=== PATIENT | female | born 1945 | race African-American/Black ===

== ENCOUNTER → 2016-08-28 | Outpatient (CLI) | payer MEDICARE, MEDICAID ==
[~2016-08-28] MED LIST: ATOR10TA15 PO; FERR200T PO; FERR325T PO; GABA300C5 PO; HYDR25TA5 PO; IBUP-232 PO; MECL-62 PO; MEDICAL COMPRES1 MIS; POTA10CA PO; POTA10TA8 PO; PRIL40CA PO; ROSU1TAB8 PO
[2016-08-28 08:25] LABS: HEMATOCRIT 38.3 % (35.0-46.0); MEAN CELL VOLUME 88.9 FL (80.0-100.0); MEAN CORPUSCULAR HEMOGLOBIN 29.3 PG (27.0-34.0); PLATELET COUNT 198 TH/MM3 (150-450); RED BLOOD COUNT 4.31 MIL/MM3 (4.00-5.30); RED CELL DISTRIBUTION WIDTH 14.3 % (11.6-17.2); REVIEW FLAG FINAL; WHITE BLOOD COUNT 6.5 TH/MM3 (4.0-11.0)
[2016-08-28 08:54] LABS: ALT (GPT) 31 U/L (10-53); ANION GAP 8 MEQ/L (5-15); AST (GOT) 29 U/L (15-37); BICARBONATE 29.4 MEQ/L (21.0-32.0); BLOOD UREA NITROGEN 11 MG/DL (7-18); CHLORIDE 105 MEQ/L (98-107); GLOMERULAR FILTRATION RATE 75 ML/MIN (>89); GLUCOSE,FASTING 108 MG/DL (74-99); POTASSIUM 3.7 MEQ/L (3.5-5.1); SODIUM (NA) 142 MEQ/L (136-145)
[2016-08-28 09:03] LABS: ALKALINE PHOSPHATASE 90 U/L (45-117); HDL CHOLESTEROL 58.1 MG/DL (40.0-60.0); LDL CHOLESTEROL 63 MG/DL (0-99); TOTAL BILIRUBIN ADULT 0.3 MG/DL (0.2-1.0)
== END ==
LOC: CLAB 07:55
PROVIDERS: ATTEND Family Medicine
DX: E87.6 Hypokalemia (principal); I10 Essential (primary) hypertension; E78.5 Hyperlipidemia, unspecified; D64.9 Anemia, unspecified
CPT/HCPCS: 36415; 80053; 80061; 84443; 85027

== ENCOUNTER 2016-09-13 01:07 | Emergency (ER) | payer MEDICARE, MEDICAID ==
[~2016-09-13] VITALS: Ht 160 cm; Wt 76.0 kg
[~2016-09-13 01:07] MED LIST changes: -FERR200T PO; -MEDICAL COMPRES1 MIS; -POTA10CA PO; -PRIL40CA PO; -ROSU1TAB8 PO
[2016-09-13 01:11] VITALS: BP 204/95; PULSE 76; RESP 15; TEMP 97.4; O2SAT 99
[2016-09-13] MEDS ORDERED: ROSU1TAB8 PO (02:20)
[2016-09-13] MEDS ORDERED: SODIUM CHLORIDE 0.9% FLUSH 10 ML FLUSH IVF PRN (03:00)
--- NOTE | 2016-09-13 03:27 | RADRPT ---
EXAM DATE/TIME: 09/13/2016 03:16 [facility] COMPARISON: CHEST PA & LAT, March 31, 2015, 12:27. INDICATIONS : Chest discomfort, swelling in lower extremities for 1 month MEDICAL HISTORY : None. SURGICAL HISTORY : None. ENCOUNTER: Initial ACUITY: 1 month PAIN SCORE: 0/10 LOCATION: Bilateral chest FINDINGS: PA and lateral views of the chest demonstrate the lungs to be symmetrically aerated without evidence of mass, infiltrate or effusion. The cardiomediastinal contours are unremarkable. Osseous structure s are intact. CONCLUSION: No acute disease. Anurag Ledbetter Jr., MD on September 13, 2016 at 3:26 Board Certified Radiologist. This report was verified electronically.
[2016-09-13 03:30] LABS: AUTOMATED NEUTROPHIL # 5.3 TH/MM3 (1.8-7.7); BASOPHIL % 0.4 % (0.0-2.0); EOSINOPHIL # 0.1 TH/MM3 (0-0.4); EOSINOPHIL % 1.4 % (0.0-4.0); HEMATOCRIT 39.1 % (35.0-46.0); HEMO FLAGS DIFF FINAL; LYMPH % 18.8 % (9.0-44.0); LYMPHOCYTE # 1.4 TH/MM3 (1.0-4.8); MEAN CELL VOLUME 88.4 FL (80.0-100.0); MEAN CORPUSCULAR HEMOGLOBIN 29.6 PG (27.0-34.0); MEAN CORPUSCULAR HGB CONC 33.5 % (32.0-36.0); MONO % 9.1 % (0.0-8.0); NEUT % 70.3 % (16.0-70.0); PLATELET COUNT 192 TH/MM3 (150-450); RED BLOOD COUNT 4.42 MIL/MM3 (4.00-5.30); RED CELL DISTRIBUTION WIDTH 14.2 % (11.6-17.2); WHITE BLOOD COUNT 7.6 TH/MM3 (4.0-11.0)
[2016-09-13 03:45] LABS: APTT (PATIENT) 25.7 SEC (24.3-30.1); PROTHROMBIN TIME - PATIENT 10.5 SEC (9.8-11.6)
[2016-09-13 03:47] LABS: ANION GAP 7 MEQ/L (5-15); BICARBONATE 29.2 MEQ/L (21.0-32.0); BLOOD UREA NITROGEN 16 MG/DL (7-18); CHLORIDE 107 MEQ/L (98-107); GLOMERULAR FILTRATION RATE 73 ML/MIN (>89); MAGNESIUM 2.1 MG/DL (1.5-2.5); POTASSIUM 4.2 MEQ/L (3.5-5.1); SODIUM (NA) 143 MEQ/L (136-145)
[2016-09-13 03:51] LABS: CREATINE KINASE 143 U/L (26-192)
[2016-09-13 04:03] LABS: CKMB 1.8 NG/ML (0.5-3.6)
[2016-09-13 04:15] VITALS: RESP 16; O2SAT 99
[2016-09-13 04:17] VITALS: BP_SYST 124; BP_SYST 129; BP_DIAS 72; BP_DIAS 76; PULSE 80; RESP 16; O2SAT 99
--- NOTE | 2016-09-13 04:20 | PD ---
HPI Chief Complaint: Edema Time Seen by Provider: 02:18 Travel History International Travel<30 days: No Contact w/Intl Traveler<30days: No Traveled to known affect area: No History of Present Illness HPI This is a very pleasant 71 year old female presents to the ER for evaluation of bilateral ankle swelling, gradually worsening over the past few weeks. States mildly tender and aching in ankles. Denies injury, sob, orthopnea, chest pain, decreased urine output. States her last set of labs some time ago were fine. Denies history of liver, kidney or heart disease. PFSH Past Medical History Anemia: Yes Arthritis: Yes Asthma: No Autoimmune Disease: No Anxiety: No Depression: No Heart Rhythm Problems: No Cancer: No Cardiovascular Problems: No High Cholesterol: Yes Chemotherapy: No Chest Pain: No Congestive Heart Failure: No COPD: No Cerebrovascular Accident: No Diabetes: No Diminished Hearing: No Endocrine: No Gastrointestinal Disorders: Yes (gerd) GERD: Yes Glaucoma: No Genitourinary: No Hepatitis: No Hiatal Hernia: No Hypertension: No Immune Disorder: No Kidney Stones: No Medical other: Yes (NECK PROBLEMS) Musculoskeletal: Yes (arthritis in r knee) Neurologic: Yes (tingling in L foot) Psychiatric: No Reproductive: No Respiratory: No Immunizations Current: Yes Migraines: No Radiation Therapy: No Renal Failure: No Seizures: No Sickle Cell Disease: No Sleep Apnea: No Thyroid Disease: No Triglycerides - High: Yes Ulcer: No ?: Not Menopausal: Yes : 0 Past Surgical History Abdominal Surgery: Yes (HERNIA ) AICD: No Arteriovenous Shunt: No Cardiac Surgery: No Ear Surgery: No Endocrine Surgery: No Eye Surgery: Yes (BILATERAL CATARACT 1987) Genitourinary Surgery: No Gynecologic Surgery: Yes ( CERVICAL MASS REMOVED APR 2015) Hysterectomy: Yes Insulin Pump: No Joint Replacement: No Neurologic Surgery: No Oral Surgery: No Pacemaker: No Thoracic Surgery: No Other Surgery: Yes (RIGHT BREAST BIOPSY) Social History Alcohol Use: No Tobacco Use: No (never) Substance Use: No Allergies-Medications (Allergen,Severity, Reaction): Coded Allergies: No Known Allergies (Verified , 09/17/16) Reported Meds & Prescriptions Reported Meds & Active Scripts Active Medical Compression Elastic Stockings 1 Mis Mis 1 Ea .ROUTE DIRECTED Hydrochlorothiazide 25 Mg Tab 25 Mg PO BID Gabapentin 300 Mg Cap 300 Mg PO HS Meclizine (Meclizine HCl) 25 Mg Tab 25 Mg PO BID PRN Reported Rosuvastatin (Rosuvastatin Calcium) 20 Mg Tab 20 Mg PO DAILY Ferrous Sulfate 325 Mg Tab 325 Mg PO DAILY Potassium Chloride CR (Potassium Chloride) 10 Meq Tab 10 Meq PO BID Ibuprofen 600 Mg Tab 600 Mg PO Q8HR PRN Review of Systems Except as stated in HPI: all other systems reviewed are Neg Physical Exam Narrative GENERAL: WD/WN in nad SKIN: Warm and dry. HEAD: Atraumatic. Normocephalic. EYES: Pupils equal and round. No scleral icterus. No injection or drainage. ENT: No nasal bleeding or discharge. Mucous membranes pink and moist. NECK: Trachea midline. No JVD. CARDIOVASCULAR: Regular rate and rhythm. RESPIRATORY: No accessory muscle use. Clear to auscultation. Breath sounds equal bilaterally. GASTROINTESTINAL: Abdomen soft, non-tender, nondistended. Hepatic and splenic margins not palpable. MUSCULOSKELETAL: Extremities without clubbing, cyanosis. There is minimal edema about the bilateral ankles. No swelling of the calf compartments. Edema is non pitting. No bony tenderness. Ambulatory without significant antalgia. No obvious deformities. NEUROLOGICAL: Awake and alert. No obvious cranial nerve deficits. Motor grossly within normal limits. Five out of 5 muscle strength in the arms and legs. Normal speech. PSYCHIATRIC: Appropriate mood and affect; insight and judgment normal. Data Data Last Documented VS Orders Electrocardiogram (09/13/16 02:53) Basic Metabolic Panel (Bmp) (09/13/16 02:53) Ckmb (Isoenzyme) Profile (09/13/16 02:53) Complete Blood Count With Diff (09/13/16 02:53) Magnesium (Mg) (09/13/16 02:53) Prothrombin Time / Inr (Pt) (09/13/16 02:53) Act Partial Throm Time (Ptt) (09/13/16 02:53) Troponin I (09/13/16 02:53) Ecg Monitoring (09/13/16 02:53) Bilateral Bp Monitoring (09/13/16 02:53) Iv Access Insert/Monitor (09/13/16 02:53) Oximetry (09/13/16 02:53) Oxygen Administration (09/13/16 02:53) Sodium Chloride 0.9% Flush (Ns Flush) (09/13/16 03:00) Chest, Pa & Lat (09/13/16 ) CKMB (09/13/16 03:00) CKMB% (09/13/16 03:00) Labs Laboratory Tests Test 09/13/16 03:00 White Blood Count 7.6 TH/MM3 Red Blood Count 4.42 MIL/MM3 Hemoglobin 13.1 GM/DL Hematocrit 39.1 % Mean Corpuscular Volume 88.4 FL Mean Corpuscular Hemoglobin 29.6 PG Mean Corpuscular Hemoglobin 33.5 % Concent Red Cell Distribution Width 14.2 % Platelet Count 192 TH/MM3 Mean Platelet Volume 8.9 FL Neutrophils (%) (Auto) 70.3 % Lymphocytes (%) (Auto) 18.8 % Monocytes (%) (Auto) 9.1 % Eosinophils (%) (Auto) 1.4 % Basophils (%) (Auto) 0.4 % Neutrophils # (Auto) 5.3 TH/MM3 Lymphocytes # (Auto) 1.4 TH/MM3 Monocytes # (Auto) 0.7 TH/MM3 Eosinophils # (Auto) 0.1 TH/MM3 Basophils # (Auto) 0.0 TH/MM3 CBC Comment DIFF FINAL Differential Comment Prothrombin Time 10.5 SEC Prothromb Time International 1.0 RATIO Ratio Activated Partial 25.7 SEC Thromboplast Time Sodium Level 143 MEQ/L Potassium Level 4.2 MEQ/L Chloride Level 107 MEQ/L Carbon Dioxide Level 29.2 MEQ/L Anion Gap 7 MEQ/L Blood Urea Nitrogen 16 MG/DL Creatinine 0.91 MG/DL Estimat Glomerular Filtration 73 ML/MIN Rate Random Glucose 103 MG/DL Calcium Level 9.8 MG/DL Magnesium Level 2.1 MG/DL Total Creatine Kinase 143 U/L Creatine Kinase MB 1.8 NG/ML Troponin I LESS THAN 0.02 NG/ML MDM Medical Decision Making Medical Screen Exam Complete: Yes Emergency Medical Condition: Yes Interpretation(s) EKG shows NSR no STT changes. Normal intervals, normal axis. Normal ekg. No change from 11/2015 Differential Diagnosis Venous stasis, arthritis, CHF unlikely, RAJI unlikely, liver disease unlikely. Narrative Course Patient roomed in ED. Quite pleasant. Initial workup essentially negative. This is likely venous stasis. Recommend JODY hose and follow up with PCP. Patient is agreeable. Offered tylenol in ED and she declined. Diagnosis Primary Impression: Pedal edema Additional Instructions: Use JODY hose as often as possible. Elevate her legs at night. Follow-up with your primary care physician. Disposition: 01 DISCHARGE HOME Condition: Stable Meliton Cage MD Sep 13, 2016 04:20
--- NOTE | 2016-09-13 10:54 | EKG ---
Date Performed: 09/13/2016 Time Performed: 04:07:30 PTAGE: 71 years EKG: Sinus rhythm LOW QRS VOLTAGE IN PRECORDIAL LEADS BORDERLINE ECG PREVIOUS TRACING : 12/08/2015 10.51 Compared to prior tracing no significant change DOCTOR: Alfred Crowley Interpretating Date/Time 09/13/2016 10:52:37
[2016-09-13] MEDS ORDERED: MEDICAL COMPRES1 MIS (16:57)
[2016-09-17] MEDS ORDERED: HYDR25TA5 PO (10:40)
[2016-09-17] MEDS ORDERED: MEDICAL COMPRES1 MIS (10:42)
[2016-10-31] MEDS ORDERED: HYDR25TA5 PO (14:07)
[2016-11-20] MEDS ORDERED: GABA300C5 PO (09:41)
[2016-11-20] MEDS ORDERED: MECL-62 PO (09:41)
== END 2016-09-13 05:03 | disposition home or self-care (01) ==
LOC: NEPC 01:07
DX: R60.0 Localized edema (principal); R07.89 Other chest pain; Z79.899 Other long term (current) drug therapy
CPT/HCPCS: 71020; 80048; 82550; 82552; 83735; 84484; 85025; 85610; 85730; 93005

== ENCOUNTER 2016-11-09 11:05 | Emergency (ER) | payer MEDICARE, MEDICAID ==
[~2016-11-09] VITALS: Ht 160 cm; Wt 75.0 kg
[~2016-11-09 11:05] MED LIST changes: -ATOR10TA15 PO; +MEDICAL COMPRES1 MIS; +ROSU1TAB8 PO
[2016-11-09 11:08] VITALS: BP 168/82; PULSE 82; RESP 16; TEMP 98.2; O2SAT 99
--- NOTE | 2016-11-09 11:13 | PD ---
Physical Exam Time Seen by Provider: 11:11 Narrative 71 y/o female here for valuation of dizziness which started yesterday. She has had similar dizziness in the past, she tried taking Meclizine which didn't help. Denies h/z, cp. Vital signs reviewed. Seen at triage desk. Awaiting bed placement. Data Data Last Documented VS Vital Signs Date Time Temp Pulse Resp B/P Pulse Ox O2 Delivery O2 Flow Rate FiO2 11/09/16 11:08 98.2 82 16 168/82 99 MDM Medical Record Reviewed: Yes Supervised Visit with ETHAN: Jonathan San Nov 09, 2016 11:13
[2016-11-09 11:18] VITALS: BP 142/85; PULSE 85; RESP 18; O2SAT 97
[2016-11-09] MEDS ORDERED: SODIUM CHLORIDE 0.9% FLUSH 10 ML FLUSH IVF PRN (11:30)
--- NOTE | 2016-11-09 11:32 | PD ---
HPI Chief Complaint: Dizziness Time Seen by Provider: 11:32 Travel History International Travel<30 days: No Contact w/Intl Traveler<30days: No Traveled to known affect area: No History of Present Illness HPI 71-year-old female with a history of hypertension presents to the emergency department for evaluation of intermittent lightheadedness since yesterday. Patient states that yesterday she began to have intermittent episodes of lightheadedness associated with a weak feeling in her legs. States that a few times she has felt as though she might pass out. States that this lasts for approximately 3-4 minutes and resolves on its own. Denies any aggravating or alleviating factors. She states that she has had dizziness in the past and been prescribed meclizine. States that she took the meclizine this morning at about 7 AM and has not had any improvement. She denies any headache, fever, chills, nausea, vomiting, chest pain, shortness of breath, numbness or tingling , one-sided weakness. PCP is family practice service. No other complaints. PFSH Past Medical History Anemia: Yes Arthritis: Yes Asthma: No Autoimmune Disease: No Anxiety: No Depression: No Heart Rhythm Problems: No Cancer: No Cardiovascular Problems: No High Cholesterol: Yes Chemotherapy: No Chest Pain: No Congestive Heart Failure: No COPD: No Cerebrovascular Accident: No Diabetes: No Diminished Hearing: No Endocrine: No Gastrointestinal Disorders: Yes (gerd) GERD: Yes Glaucoma: No Genitourinary: No Hepatitis: No Hiatal Hernia: No Hypertension: No Immune Disorder: No Kidney Stones: No Musculoskeletal: Yes (arthritis in r knee) Neurologic: Yes (tingling in L foot) Psychiatric: No Reproductive: No Respiratory: No Immunizations Current: Yes Migraines: No Radiation Therapy: No Renal Failure: No Seizures: No Sickle Cell Disease: No Sleep Apnea: No Thyroid Disease: No Triglycerides - High: Yes Ulcer: No Menopausal: Yes : 0 Past Surgical History Abdominal Surgery: Yes (HERNIA ) AICD: No Arteriovenous Shunt: No Cardiac Surgery: No Ear Surgery: No Endocrine Surgery: No Eye Surgery: Yes (BILATERAL CATARACT 1987) Genitourinary Surgery: No Gynecologic Surgery: Yes ( CERVICAL MASS REMOVED APR 2015) Hysterectomy: Yes Insulin Pump: No Joint Replacement: No Neurologic Surgery: No Oral Surgery: No Pacemaker: No Thoracic Surgery: No Other Surgery: Yes (RIGHT BREAST BIOPSY) Social History Alcohol Use: No Tobacco Use: No (never) Substance Use: No Allergies-Medications (Allergen,Severity, Reaction): Coded Allergies: No Known Allergies (Verified , 11/09/16) Reported Meds & Prescriptions Reported Meds & Active Scripts Active Hydrochlorothiazide 25 Mg Tab 25 Mg PO BID Gabapentin 300 Mg Cap 300 Mg PO HS Meclizine (Meclizine HCl) 25 Mg Tab 25 Mg PO BID PRN Reported Potassium Chloride ER (Potassium Chloride) 10 Meq Cap 10 Meq PO BID Feosol (Ferrous Sulfate) 200 Mg Tab 325 Mg PO DAILY Rosuvastatin (Rosuvastatin Calcium) 20 Mg Tab 25 Mg PO DAILY Ibuprofen 600 Mg Tab 600 Mg PO Q8HR PRN Review of Systems Except as stated in HPI: all other systems reviewed are Neg Physical Exam Narrative GENERAL: Well-nourished and well-developed pleasant patient in no acute distress who is nontoxic appearing. SKIN: Warm and dry. HEAD: Normocephalic and atraumatic. EYES: No injection, drainage, or hyphema noted. PERRLA. EOMI. ENT: No nasal drainage noted. Oropharynx is clear. The right tympanic membrane is obscured from view by cerumen. The left tympanic membranes within normal limits. NECK: Supple and the trachea is midline. CARDIOVASCULAR: Regular rate and rhythm. RESPIRATORY: Breath sounds are equal bilaterally with no accessory muscle use, wheezing, rhonchi, or crackles. GASTROINTESTINAL: Abdomen is soft, non-tender, and nondistended. MUSCULOSKELETAL: No obvious deformities, swelling, cyanosis, or ecchymosis is present throughout the upper and lower extremities. Patient has full range of motion without any signs of neurovascular compromise. Strength 5/5 upper and lower extremities equal bilaterally. NEUROLOGICAL: Awake, alert, and oriented. Normal speech and gait. Normal finger to nose testing. Normal [id number] test. Cranial nerves are grossly intact. Data Data Last Documented VS Vital Signs Date Time Temp Pulse Resp B/P Pulse Ox O2 Delivery O2 Flow Rate FiO2 11/09/16 14:01 80 18 122/65 100 Room Air 11/09/16 11:08 98.2 Orders Electrocardiogram (11/09/16 11:28) Complete Blood Count With Diff (11/09/16 11:28) Comprehensive Metabolic Panel (11/09/16 11:28) Troponin I (11/09/16 11:28) Urinalysis - C+S If Indicated (11/09/16 11:28) Chest, Single Ap (11/09/16 11:28) Ecg Monitoring (11/09/16 11:28) Iv Access Insert/Monitor (11/09/16 11:28) Oximetry (11/09/16 11:28) Sodium Chloride 0.9% Flush (Ns Flush) (11/09/16 11:30) Ear Irrigation (11/09/16 13:02) Labs Laboratory Tests Test 11/09/16 11/09/16 11:50 14:10 White Blood Count 6.1 TH/MM3 Red Blood Count 4.40 MIL/MM3 Hemoglobin 12.6 GM/DL Hematocrit 38.2 % Mean Corpuscular Volume 86.9 FL Mean Corpuscular Hemoglobin 28.5 PG Mean Corpuscular Hemoglobin 32.8 % Concent Red Cell Distribution Width 14.1 % Platelet Count 200 TH/MM3 Mean Platelet Volume 8.4 FL Neutrophils (%) (Auto) 68.0 % Lymphocytes (%) (Auto) 24.1 % Monocytes (%) (Auto) 6.4 % Eosinophils (%) (Auto) 1.0 % Basophils (%) (Auto) 0.5 % Neutrophils # (Auto) 4.1 TH/MM3 Lymphocytes # (Auto) 1.5 TH/MM3 Monocytes # (Auto) 0.4 TH/MM3 Eosinophils # (Auto) 0.1 TH/MM3 Basophils # (Auto) 0.0 TH/MM3 CBC Comment DIFF FINAL Differential Comment Sodium Level 142 MEQ/L Potassium Level 3.7 MEQ/L Chloride Level 104 MEQ/L Carbon Dioxide Level 33.3 MEQ/L Anion Gap 5 MEQ/L Blood Urea Nitrogen 15 MG/DL Creatinine 0.75 MG/DL Estimat Glomerular Filtration 92 ML/MIN Rate Random Glucose 100 MG/DL Calcium Level 10.0 MG/DL Total Bilirubin 0.3 MG/DL Aspartate Amino Transf 32 U/L (AST/SGOT) Alanine Aminotransferase 32 U/L (ALT/SGPT) Alkaline Phosphatase 101 U/L Troponin I LESS THAN 0.02 NG/ML Total Protein 7.4 GM/DL Albumin 3.7 GM/DL Urine Color LIGHT-YELLOW Urine Turbidity CLEAR Urine pH 8.0 Urine Specific [place] 1.009 Urine Protein NEG mg/dL Urine Glucose (UA) NEG mg/dL Urine Ketones NEG mg/dL Urine Occult Blood NEG Urine Nitrite NEG Urine Bilirubin NEG Urine Urobilinogen LESS THAN 2.0 MG/DL Urine Leukocyte Esterase NEG Urine WBC LESS THAN 1 /hpf Urine Mucus FEW /lpf Microscopic Urinalysis Comment CULT NOT INDICATED MDM Medical Decision Making Medical Screen Exam Complete: Yes Emergency Medical Condition: Yes Differential Diagnosis Electrolyte abnormality versus arrhythmia versus dehydration versus UTI versus other Narrative Course 71-year-old female presents to the emergency department for evaluation of lightheadedness intermittently since yesterday. Patient is afebrile, vital signs are stable. No focal neurologic deficits. She seems to be describing lightheadedness, does not sound vertiginous. She tried meclizine without improvement. IV access is obtained, labs were drawn and sent. Patient is placed on cardiac telemetry and pulse oximetry monitoring. EKG shows normal sinus rhythm with no acute ST elevations or depressions, normal intervals. I reviewed the EMR which shows the patient had an echo done 09/24/69 as an outpatient showing her ejection fraction 60-65%, mild left ventricular hypertrophy, grade 1 diastolic dysfunction, mild tricuspid and moderate mitral regurgitation, mild pulmonary insufficiency. CBC is unremarkable. CMP is unremarkable. Troponin is less than 0.02. Urinalysis is unremarkable. I reevaluated the patient's right ear after ear irrigation. She still has some soft cerumen obscuring the tympanic membrane. She has no ear pain in the right ear and therefore don't suspect she has an infection. This could be contributing to her lightheadedness as she reports she's had "inner ear problems " in the past. I have instructed the patient to use [id number] Debrox at home on this right ear. Patient states that she's had no further episodes of lightheadedness while here in the emergency room. States that she is feeling well overall and is eager to go home. I don't suspect that the symptoms are related to a stroke or TIA based on her presentation. Given her reassuring labs and benign physical examination I think it is reasonable to discharge the patient home with return precautions. I discussed this with the patient and she is comfortable with this plan. Patient is stable for discharge. I discussed the case with my attending physician Dr. Montalvo who is aware of the patients history, physical examination findings, and treatment plan. Diagnosis Primary Impression: Episodic lightheadedness Additional Impression: Impacted cerumen of right ear Referrals: Primary Care Physician Patient Instructions: Cerumen Impaction (ED), General Instructions, Lightheadedness (ED) Additional Instructions: Use [id number] Debrox in the right ear as directed on the box. Follow-up with your Primary Care Physician. Return to the ED for any acute worsening of symptoms such as chest pain, difficulty breathing, syncope, headache. Med/Other Pt SpecificInfo: No Change to Meds Disposition: 01 DISCHARGE HOME Condition: Stable Lary Bailey Nov 09, 2016 11:32
[2016-11-09] MEDS ORDERED: POTA10CA PO (11:43)
[2016-11-09] MEDS ORDERED: FERR200T PO (11:43)
--- NOTE | 2016-11-09 12:29 | RADRPT ---
EXAM DATE/TIME: 11/09/2016 12:04 [facility] COMPARISON: CHEST SINGLE AP, November 26, 2015, 8:45. INDICATIONS : Patient has been short of breath and leg weakness in both legs. MEDICAL HISTORY : None. SURGICAL HISTORY : None. ENCOUNTER: Initial ACUITY: 1 day PAIN SCORE: 0/10 LOCATION: Bilateral chest FINDINGS: A single view of the chest demonstrates the lungs to be symmetrically aerated without evidence of mas s, infiltrate or effusion. The cardiomediastinal contours are unremarkable. Osseous structures are intact. CONCLUSION: No acute disease. Alban Aguilar MD on November 09, 2016 at 12:27 Board Certified Radiologist. This report was verified electronically.
[2016-11-09 13:02] LABS: AUTOMATED NEUTROPHIL # 4.1 TH/MM3 (1.8-7.7); BASOPHIL % 0.5 % (0.0-2.0); EOSINOPHIL # 0.1 TH/MM3 (0-0.4); HEMATOCRIT 38.2 % (35.0-46.0); HEMO FLAGS DIFF FINAL; LYMPH % 24.1 % (9.0-44.0); LYMPHOCYTE # 1.5 TH/MM3 (1.0-4.8); MEAN CELL VOLUME 86.9 FL (80.0-100.0); MEAN CORPUSCULAR HEMOGLOBIN 28.5 PG (27.0-34.0); MEAN CORPUSCULAR HGB CONC 32.8 % (32.0-36.0); MONO % 6.4 % (0.0-8.0); PLATELET COUNT 200 TH/MM3 (150-450); RED CELL DISTRIBUTION WIDTH 14.1 % (11.6-17.2); WHITE BLOOD COUNT 6.1 TH/MM3 (4.0-11.0)
[2016-11-09 13:20] LABS: ALT (GPT) 32 U/L (10-53); ANION GAP 5 MEQ/L (5-15); AST (GOT) 32 U/L (15-37); BICARBONATE 33.3 MEQ/L (21.0-32.0); BLOOD UREA NITROGEN 15 MG/DL (7-18); CHLORIDE 104 MEQ/L (98-107); GLOMERULAR FILTRATION RATE 92 ML/MIN (>89); POTASSIUM 3.7 MEQ/L (3.5-5.1); SODIUM (NA) 142 MEQ/L (136-145)
[2016-11-09 13:23] LABS: ALKALINE PHOSPHATASE 101 U/L (45-117); TOTAL BILIRUBIN ADULT 0.3 MG/DL (0.2-1.0)
[2016-11-09 14:01] VITALS: BP 122/65; PULSE 80; RESP 18; O2SAT 100
[2016-11-09 14:32] LABS: BLOOD, URINE NEG (NEG); COMMENT (UR) CULT NOT INDICATED; CULTURE IF INDICATED CULT NOT INDICATED; GLUCOSE,URINE NEG (NEG); KETONE, URINE NEG (NEG); MUCUS URINE FEW /lpf (OCC); NITRITE,URINE NEG (NEG); URINE COLOR LIGHT-YELLOW (YELLW/STRAW)
--- NOTE | 2016-11-10 15:05 | EKG ---
Date Performed: 11/09/2016 Time Performed: 11:36:55 PTAGE: 71 years EKG: Sinus rhythm NORMAL ECG Since PREVIOUS TRACING 09/13/2016, no significant change. PREVIOUS TRACIN09/13/2016 04.07 DOCTOR: Ben Caceres Interpretating Date/Time 11/10/2016 15:03:22
[2016-11-20] MEDS ORDERED: GABA300C5 PO (09:41)
[2016-11-20] MEDS ORDERED: MECL-62 PO (09:41)
== END 2016-11-09 15:21 | disposition home or self-care (01) ==
LOC: NEPE 11:05
DX: R42 Dizziness and giddiness (principal); H61.21 Impacted cerumen, right ear; R06.02 Shortness of breath
CPT/HCPCS: 71010; 80053; 81001; 84484; 85025; 93005; 99285

== ENCOUNTER → 2017-02-27 | Outpatient (CLI) | payer MEDICARE, MEDICAID ==
[~2017-02-27] MED LIST changes: +BETA0.052 TOPICAL; +FERR200T PO; -FERR325T PO; -MEDICAL COMPRES1 MIS; +POTA10CA PO; -POTA10TA8 PO; +PRED20 PO
[2017-02-27 16:27] LABS: HEMOGLOBIN A1a 0.9 %; HEMOGLOBIN A1b 1.6 %; HEMOGLOBIN Ao 86.3 %; HEMOGLOBIN LA1C 1.9 %; HEMOGLOBIN P3 3.5 %
== END ==
LOC: CLAB 07:59
PROVIDERS: ATTEND Family Medicine
DX: R73.01 Impaired fasting glucose (principal); I10 Essential (primary) hypertension
CPT/HCPCS: 36415; 83036

== ENCOUNTER 2017-03-07 08:50 | Emergency (ER) | payer MEDICARE, MEDICAID ==
[~2017-03-07] VITALS: Ht 160 cm; Wt 75.0 kg
[2017-03-07 08:52] VITALS: BP 149/80; PULSE 86; RESP 16; TEMP 98.7; O2SAT 99
[2017-03-07 10:38] LABS: AUTOMATED NEUTROPHIL # 4.6 TH/MM3 (1.8-7.7); BASOPHIL % 0.3 % (0.0-2.0); EOSINOPHIL % 0.7 % (0.0-4.0); HEMO FLAGS DIFF FINAL; LYMPH % 20.1 % (9.0-44.0); LYMPHOCYTE # 1.3 TH/MM3 (1.0-4.8); MEAN CORPUSCULAR HEMOGLOBIN 29.4 PG (27.0-34.0); MEAN CORPUSCULAR HGB CONC 33.1 % (32.0-36.0); MONO % 6.9 % (0.0-8.0); PLATELET COUNT 195 TH/MM3 (150-450); RED CELL DISTRIBUTION WIDTH 14.5 % (11.6-17.2); WHITE BLOOD COUNT 6.5 TH/MM3 (4.0-11.0)
[2017-03-07 10:42] LABS: BLOOD, URINE NEG (NEG); GLUCOSE,URINE NEG (NEG); KETONE, URINE NEG (NEG); NITRITE,URINE NEG (NEG); SQUAMOUS EPITHELIAL CELL URINE <1 /hpf (0-5); URINE COLOR COLORLESS (YELLW/STRAW)
[2017-03-07 10:43] LABS: COMMENT (UR) CULT NOT INDICATED; CULTURE IF INDICATED CULT NOT INDICATED
[2017-03-07 10:49] LABS: ANION GAP 5 MEQ/L (5-15); AST (GOT) 31 U/L (15-37); BICARBONATE 30.7 MEQ/L (21.0-32.0); BLOOD UREA NITROGEN 14 MG/DL (7-18); CHLORIDE 104 MEQ/L (98-107); GLOMERULAR FILTRATION RATE 81 ML/MIN (>89); POTASSIUM 3.7 MEQ/L (3.5-5.1); SODIUM (NA) 140 MEQ/L (136-145)
[2017-03-07 10:50] LABS: ALT (GPT) 28 U/L (10-53)
[2017-03-07 10:52] LABS: ALKALINE PHOSPHATASE 94 U/L (45-117); TOTAL BILIRUBIN ADULT 0.4 MG/DL (0.2-1.0)
--- NOTE | 2017-03-07 11:29 | PD ---
HPI Chief Complaint: Dizziness Time Seen by Provider: 11:24 Travel History International Travel<30 days: No Contact w/Intl Traveler<30days: No Traveled to known affect area: No History of Present Illness HPI Patient comes in complaining of intermittent dizziness since yesterday. Patient reports a history of vertigo states this feels different. Patient states when the dizziness occurs she feels a pulling in the back of her head without radiation. Patient took her meclizine this morning after the dizziness began with minimal relief of symptoms. Patient denies any dizziness currently. Denies any chest pain, shortness breath, fevers, nausea, vomiting, loss change in bowel or bladder, numbness or tingling anywhere, or syncopal episodes. Patient states she felt a little bit of weakness in her legs with the dizziness. Patient denies anything making it worse. PFSH Past Medical History Anemia: Yes Arthritis: Yes Asthma: No Autoimmune Disease: No Anxiety: No Depression: No Heart Rhythm Problems: No Cancer: No Cardiovascular Problems: No High Cholesterol: Yes Chemotherapy: No Chest Pain: No Congestive Heart Failure: No COPD: No Cerebrovascular Accident: No Diabetes: No Diminished Hearing: No Endocrine: No Gastrointestinal Disorders: Yes (gerd) GERD: Yes Glaucoma: No Genitourinary: No Hepatitis: No Hiatal Hernia: No Hypertension: No Immune Disorder: No Kidney Stones: No Medical other: Yes (NECK PROBLEMS) Musculoskeletal: Yes (arthritis in r knee) Neurologic: Yes (tingling in L foot) Psychiatric: No Reproductive: No Respiratory: No Immunizations Current: Yes Migraines: No Radiation Therapy: No Renal Failure: No Seizures: No Sickle Cell Disease: No Sleep Apnea: No Thyroid Disease: No Triglycerides - High: Yes Ulcer: No Tetanus Vaccination: > 5 Years Influenza Vaccination: No ?: Not Menopausal: Yes : 0 Past Surgical History Abdominal Surgery: Yes (HERNIA ) AICD: No Arteriovenous Shunt: No Cardiac Surgery: No Ear Surgery: No Endocrine Surgery: No Eye Surgery: Yes (BILATERAL CATARACT 1987) Genitourinary Surgery: No Gynecologic Surgery: Yes ( CERVICAL MASS REMOVED APR 2015, hysterectomy) Hysterectomy: Yes Insulin Pump: No Joint Replacement: No Neurologic Surgery: No Oral Surgery: No Pacemaker: No Thoracic Surgery: No Other Surgery: Yes (RIGHT BREAST BIOPSY) Social History Alcohol Use: No Tobacco Use: No (never) Substance Use: No Allergies-Medications (Allergen,Severity, Reaction): Coded Allergies: No Known Allergies (Verified , 03/07/17) Reported Meds & Prescriptions Reported Meds & Active Scripts Active Gabapentin 300 Mg Cap 300 Mg PO HS Ibuprofen 600 Mg Tab 600 Mg PO Q8HR PRN Rosuvastatin (Rosuvastatin Calcium) 20 Mg Tab 20 Mg PO DAILY Hydrochlorothiazide 25 Mg Tab 25 Mg PO BID Potassium Chloride ER (Potassium Chloride) 10 Meq Cap 10 Meq PO BID Meclizine (Meclizine HCl) 25 Mg Tab 25 Mg PO BID PRN Reported Feosol (Ferrous Sulfate) 200 Mg Tab 325 Mg PO DAILY Review of Systems Except as stated in HPI: all other systems reviewed are Neg Physical Exam Narrative GENERAL: Well-developed, overly nourished, in no acute distress, and non-ill appearing. SKIN: Focused skin assessment warm and dry. HEAD: Atraumatic. Normocephalic. EYES: Pupils equal and round. EOMI. No scleral icterus. No injection or drainage. ENT: No nasal bleeding or discharge. Mucous membranes pink and moist. NECK: Trachea midline. No JVD. Supple. No nuclear rigidity. CARDIOVASCULAR: Regular rate and rhythm. No murmur appreciated. RESPIRATORY: No accessory muscle use. No respiratory distress. Clear to auscultation. Breath sounds equal bilaterally. MUSCULOSKELETAL: No obvious deformities. No clubbing. No cyanosis. No edema. Full range of motion. Shoulder:FROM equal BL with passive flexion, extension, Abduction, Adduction, internal/external rotation, and pronation/supination. Sensation equal BL deltoid muscles. Pulses equal BL distal to injury. Capillary refill less than 2 seconds distal to injury and equal BL. FROM distal to injury and equal BL. Strength distal to injury equal BL. NV intact distal to injury equal BL. Flexion and extension of thumb equal BL. Equal strength and movement with abduction/adductions of BL fingers. Cutter Hot Knife strength equal BL. NEUROLOGICAL: Awake and alert. No obvious cranial nerve deficits. Motor grossly within normal limits. Normal speech. PSYCHIATRIC: Appropriate mood and affect; insight and judgment normal. Data Data Last Documented VS Vital Signs Date Time Temp Pulse Resp B/P (MAP) Pulse Ox O2 Delivery O2 Flow Rate FiO2 03/07/17 16:51 86 18 137/67 (90) 98 Room Air 03/07/17 08:52 98.7 Orders Orders Complete Blood Count With Diff (03/07/17 10:18) Comprehensive Metabolic Panel (03/07/17 10:18) Iv Access Insert/Monitor (03/07/17 10:18) Urinalysis - C+S If Indicated (03/07/17 10:18) Prothrombin Time / Inr (Pt) (03/07/17 11:21) Act Partial Throm Time (Ptt) (03/07/17 11:21) Ecg Monitoring (03/07/17 11:21) Oximetry (03/07/17 11:21) Sodium Chloride 0.9% Flush (Ns Flush) (03/07/17 11:30) Electrocardiogram (03/07/17 11:21) Mri Brain W&W/O Contrast (03/07/17 ) Mra Brain W/O Contrast (Cow) (03/07/17 ) Orthostatic Vital Signs (03/07/17 11:21) Gadodiamide Pf Inj (Omniscan Pf Inj) (03/07/17 15:20) Labs Laboratory Tests Test 03/07/17 09:30 03/07/17 09:45 Urine Color COLORLESS Urine Turbidity CLEAR Urine pH 7.0 Urine Specific [place] 1.004 Urine Protein NEG mg/dL Urine Glucose (UA) NEG mg/dL Urine Ketones NEG mg/dL Urine Occult Blood NEG Urine Nitrite NEG Urine Bilirubin NEG Urine Urobilinogen LESS THAN 2.0 MG/DL Urine Leukocyte Esterase NEG Urine RBC LESS THAN 1 /hpf Urine WBC LESS THAN 1 /hpf Urine Squamous Epithelial Cells <1 /hpf Microscopic Urinalysis Comment CULT NOT INDICATED White Blood Count 6.5 TH/MM3 Red Blood Count 4.50 MIL/MM3 Hemoglobin 13.2 GM/DL Hematocrit 40.0 % Mean Corpuscular Volume 89.0 FL Mean Corpuscular Hemoglobin 29.4 PG Mean Corpuscular Hemoglobin Concent 33.1 % Red Cell Distribution Width 14.5 % Platelet Count 195 TH/MM3 Mean Platelet Volume 9.0 FL Neutrophils (%) (Auto) 72.0 % Lymphocytes (%) (Auto) 20.1 % Monocytes (%) (Auto) 6.9 % Eosinophils (%) (Auto) 0.7 % Basophils (%) (Auto) 0.3 % Neutrophils # (Auto) 4.6 TH/MM3 Lymphocytes # (Auto) 1.3 TH/MM3 Monocytes # (Auto) 0.4 TH/MM3 Eosinophils # (Auto) 0.0 TH/MM3 Basophils # (Auto) 0.0 TH/MM3 CBC Comment DIFF FINAL Differential Comment Prothrombin Time 10.7 SEC Prothromb Time International Ratio 1.0 RATIO Activated Partial Thromboplast Time 27.2 SEC Blood Urea Nitrogen 14 MG/DL Creatinine 0.83 MG/DL Random Glucose 111 MG/DL Total Protein 7.3 GM/DL Albumin 3.7 GM/DL Calcium Level 9.8 MG/DL Alkaline Phosphatase 94 U/L Aspartate Amino Transf (AST/SGOT) 31 U/L Alanine Aminotransferase (ALT/SGPT) 28 U/L Total Bilirubin 0.4 MG/DL Sodium Level 140 MEQ/L Potassium Level 3.7 MEQ/L Chloride Level 104 MEQ/L Carbon Dioxide Level 30.7 MEQ/L Anion Gap 5 MEQ/L Estimat Glomerular Filtration Rate 81 ML/MIN [facility] Medical Decision Making Medical Screen Exam Complete: Yes Emergency Medical Condition: Yes Interpretation(s) EKG reviewed by Dr. Lomas shows normal sinus rhythm ventricular rate is 78. No STEMI. MRA of the brain read by the radiologist shows: Brain MRA within normal limits. MRI of the brain read by the radiologist shows: Brain MRI within normal limits. Differential Diagnosis CVA, TIA, UTI, electrolyte abnormality, vertigo, arrhythmia, anemia, other Narrative Course The patient presented with symptoms of vertigo. The history and exam/evaluation are consistent more so with peripheral vertigo and not central. The cerebellar neurologic exam is completely normal with a normal gait, normal finger to nose bilaterally, and normal heel-shoemaker exam bilaterally. However due to the patients age and risk factors, the patient was had an MRI/MRA of the brain to rule out CVA. The clinical suspicion, plan of care and management were discussed with the patient and the patient agreed with plan. The MRI/MRA were found to be normal by the radiologist and the patient can be safely discharged. Patient in no obvious distress upon re-evaluation. All pertinent laboratory/ Radiology result(s) discussed with patient. Discussed patient with Dr. Lomas prior to discharge, who is in agreement with plan of care and disposition. Any questions/concerns in reference to patient diagnosis/condition discussed and clarified prior to patient's discharge. Reinforced sheer importance of close follow up with patient's primary physician or primary care clinic. Instructed patient to return to ED immediately, if symptoms return/worsen. Patient showed understanding of above instructions. Further instructions and recommendations were detailed in discharge paperwork. Patient ambulated without difficulty out of ED at discharge. Diagnosis Primary Impression: Dizziness Patient Instructions: Dizziness (ED), General Instructions Additional Instructions: Follow-up with your primary care physician next week for reevaluation. Drink plenty of non-caffeinated and nonalcoholic fluids. Return to the emergency department if symptoms get worse. Disposition: 01 DISCHARGE HOME Condition: Stable Celestino Hickman Mar 07, 2017 11:29
[2017-03-07] MEDS ORDERED: SODIUM CHLORIDE 0.9% FLUSH 10 ML FLUSH IV FLUSH PRN (11:30)
[2017-03-07 11:52] LABS: APTT (PATIENT) 27.2 SEC (24.3-30.1); PROTHROMBIN TIME - PATIENT 10.7 SEC (9.8-11.6)
[2017-03-07 13:18] VITALS: BP_SYST 141; BP_SYST 146; BP_SYST 191; BP_DIAS 70; BP_DIAS 71; BP_DIAS 91; PULSE 88; RESP 18; O2SAT 96
[2017-03-07] MEDS ORDERED: GADODIAMIDE PF 287 MG/ML 5 ML VIAL (for RAD MRI) IVCONTRAST ONE (15:20)
--- NOTE | 2017-03-07 16:15 | RADRPT ---
EXAM DATE/TIME: 03/07/2017 15:03 [facility] COMPARISON: No previous studies available for comparison. INDICATIONS : Cephalgia. Intermittent dizziness. MEDICAL HISTORY : Vertigo. Anxiety. SURGICAL HISTORY : Umbilical hernia repair. Hysterectomy. Right breast biopsy. ENCOUNTER: Subsequent ACUITY: 1 day PAIN SCORE: 3/10 LOCATION: head. Please note a normal MRA of the brain does not entirely exclude the possibility of a small aneurysm, nor the possibility of distal intracranial vessel disease. TECHNIQUE: 3D time of flight MRA was performed. Source images, multiplanar STS MIP, and 3D volume MIP reconstru ctions were reviewed. FINDINGS: There is excellent visualization of the major intracranial arteries out to the second-order branch ve ssels. There is no evidence for aneurysm, vessel truncation or stenosis, and no evidence for vascula r malformation. CONCLUSION: Brain MRA within normal limits. Low Esqueda MD on March 07, 2017 at 16:12 Board Certified Radiologist. This report was verified electronically.
--- NOTE | 2017-03-07 16:17 | RADRPT ---
EXAM DATE/TIME: 03/07/2017 15:03 [facility] COMPARISON: No previous studies available for comparison. INDICATIONS : Cephalgia. Intermittent dizziness. CONTRAST: 15 cc Omniscan (gadodiamide) IV MEDICAL HISTORY : Anxiety. Vertigo. SURGICAL HISTORY : Umbilical hernia repair. Hysterectomy. Right breast biopsy. ENCOUNTER: Subsequent ACUITY: 1 day PAIN SCORE: 3/10 LOCATION: head. TECHNIQUE: Multiplanar, multisequence MRI of the brain was performed both prior to and following the administrat ion of paramagnetic contrast. FINDINGS: CEREBRUM: The ventricles are normal for age. No evidence of midline shift, mass lesion, hemorrhage or acute in farction. No extraaxial fluid collections are seen. The pituitary gland and suprasellar cistern are normal in configuration. WHITE MATTER: No significant signal abnormalities are seen in the white matter. POSTERIOR FOSSA: The cerebellum and brainstem are intact. The 4th ventricle is midline. The cerebellopontine angle is unremarkable. The cerebellar tonsils are normal in position. DIFFUSION IMAGING: No focal areas of restricted diffusion are seen. No evidence of acute infarction. EXTRACRANIAL: The visualized portions of the orbits and paranasal sinuses are unremarkable. POST-CONTRAST: No abnormal areas of parenchymal or dural enhancement. No evidence of blood-brain barrier breakdown. CONCLUSION: Brain MRI within normal limits. Low Esqueda MD on March 07, 2017 at 16:14 Board Certified Radiologist. This report was verified electronically.
[2017-03-07 16:51] VITALS: BP 137/67; PULSE 86; RESP 18; O2SAT 98
--- NOTE | 2017-03-08 10:29 | EKG ---
Date Performed: 03/07/2017 Time Performed: 12:27:15 PTAGE: 72 years EKG: Sinus rhythm NORMAL ECG PREVIOUS TRACING : 11/09/2016 11.36 Compared to prior tracing no significant change DOCTOR: Johnson Aguila Interpretating Date/Time 03/08/2017 10:22:33
[2017-03-27] MEDS ORDERED: MECL-62 PO (10:53)
== END 2017-03-07 17:30 | disposition home or self-care (01) ==
LOC: NEPE 08:50
DX: R42 Dizziness and giddiness (principal); E78.5 Hyperlipidemia, unspecified; Z86.2 Personal history of diseases of the blood and blood-forming organs and certain disorders involving the immune mechanism; Z87.39 Personal history of other diseases of the musculoskeletal system and connective tissue; Z87.19 Personal history of other diseases of the digestive system; Z86.69 Personal history of other diseases of the nervous system and sense organs
CPT/HCPCS: 70544; 70553; 80053; 81001; 85025; 85610; 85730; 93005; 99285; A9579

== ENCOUNTER → 2017-05-15 | Outpatient (CLI) | payer MEDICARE, MEDICAID ==
[~2017-05-15] MED LIST changes: -BETA0.052 TOPICAL; +CLOB0.05 TOPICAL; -FERR200T PO; +FERR325T18 PO; +MOBI15TA PO; -PRED20 PO; +TRIA4LOT TOPICAL
[2017-05-15 10:36] LABS: HEMATOCRIT 39.2 % (35.0-46.0); MEAN CELL VOLUME 89.8 FL (80.0-100.0); MEAN CORPUSCULAR HEMOGLOBIN 29.1 PG (27.0-34.0); MEAN CORPUSCULAR HGB CONC 32.4 % (32.0-36.0); PLATELET COUNT 170 TH/MM3 (150-450); RED BLOOD COUNT 4.36 MIL/MM3 (4.00-5.30); RED CELL DISTRIBUTION WIDTH 14.3 % (11.6-17.2); REVIEW FLAG FINAL; WHITE BLOOD COUNT 5.6 TH/MM3 (4.0-11.0)
== END ==
LOC: CLAB 09:20
PROVIDERS: ATTEND Family Medicine
DX: Z86.2 Personal history of diseases of the blood and blood-forming organs and certain disorders involving the immune mechanism (principal)
CPT/HCPCS: 36415; 85027; G0463; 99213

== ENCOUNTER 2017-08-02 23:54 | Emergency (ER) | payer MEDICARE, MEDICAID ==
[~2017-08-02] VITALS: Ht 160 cm; Wt 68.0 kg
[~2017-08-02 23:54] MED LIST changes: +MELO15TA20 PO
[2017-08-02 23:55] VITALS: BP 149/75; PULSE 83; RESP 16; TEMP 98.7; O2SAT 99
[2017-08-03] MEDS ORDERED: FLUT50SP EACH NARE (00:31)
[2017-08-03] MEDS ORDERED: ALLE60TA PO (00:31)
[2017-08-03] MEDS ORDERED: ONDANSETRON HCL 4 MG/2 ML VIAL IVP ONE (01:00)
[2017-08-03] MEDS ORDERED: SODIUM CHLORIDE 0.9% FLUSH 10 ML FLUSH IVF PRN (01:00)
[2017-08-03 01:13] VITALS: RESP 16; O2SAT 99
[2017-08-03 01:17] VITALS: BP 147/76; PULSE 78; RESP 16; O2SAT 99
--- NOTE | 2017-08-03 01:19 | PD ---
HPI Chief Complaint: General Weakness Time Seen by Provider: 01:18 Travel History International Travel<30 days: No Contact w/Intl Traveler<30days: No Traveled to known affect area: No History of Present Illness HPI 72-year-old female presents to the emergency department for 2-3 days of intermittent generalized weakness. Patient also complains of sinus disease. Patient had dizziness. Patient denies chest pain or shortness of breath. Patient denies abdominal pain or dysuria. Patient states she has issues with sinus infections. Patient was seen recently as an outpatient and due to persistent symptoms decided to come to the emergency room. Patient rates pain in triage 0/10 in intensity. PFSH Past Medical History Narrative Medical Anemia arthritis dyslipidemia; nursing notes reviewed Anemia: Yes Arthritis: Yes Asthma: No Autoimmune Disease: No Anxiety: No Depression: No Heart Rhythm Problems: No Cancer: No Cardiovascular Problems: No High Cholesterol: Yes Chemotherapy: No Chest Pain: No Congestive Heart Failure: No COPD: No Cerebrovascular Accident: No Diabetes: No Diminished Hearing: No Endocrine: No Gastrointestinal Disorders: Yes (gerd) GERD: Yes Glaucoma: No Genitourinary: No Headaches: No Hepatitis: No Hiatal Hernia: No Heparin Induced Thrombocytopen: No Hypertension: No Immune Disorder: No Implanted Vascular Access Dvce: No Kidney Stones: No Medical other: Yes (NECK PROBLEMS) Musculoskeletal: Yes (arthritis in r knee) Neurologic: Yes (tingling in L foot) Psychiatric: No Reproductive: No Respiratory: No Immunizations Current: Yes Migraines: No Radiation Therapy: No Renal Failure: No Seizures: No Sickle Cell Disease: No Sleep Apnea: No Thyroid Disease: No Triglycerides - High: Yes Ulcer: No Tetanus Vaccination: > 5 Years Influenza Vaccination: No Menopausal: Yes : 0 Past Surgical History Abdominal Surgery: Yes (HERNIA ) AICD: No Arteriovenous Shunt: No Cardiac Surgery: No Ear Surgery: No Endocrine Surgery: No Eye Surgery: Yes (BILATERAL CATARACT 1987) Genitourinary Surgery: No Gynecologic Surgery: Yes ( CERVICAL MASS REMOVED APR 2015, hysterectomy) Hysterectomy: Yes Insulin Pump: No Joint Replacement: No Neurologic Surgery: No Oral Surgery: No Pacemaker: No Thoracic Surgery: No Other Surgery: Yes (RIGHT BREAST BIOPSY) Social History Alcohol Use: No Tobacco Use: No (never) Substance Use: No Allergies-Medications (Allergen,Severity, Reaction): Coded Allergies: No Known Allergies (Verified Allergy, Unknown, 08/03/17) Reported Meds & Prescriptions Reported Meds & Active Scripts Active Zithromax Tri-Wiliam (Azithromycin) 500 Mg Dspk 500 Mg PO DAILY Ibuprofen 600 Mg Tab 600 Mg PO Q8HR PRN Potassium Chloride ER (Potassium Chloride) 10 Meq Cap 10 Meq PO BID Gabapentin 300 Mg Cap 300 Mg PO HS Ferrous Sulfate 325 Mg (65 Mg Iron) Tablet 325 Mg PO DAILY Triamcinolone Topical (Triamcinolone Acetonide) 0.025% Lotn 1 Applic TOPICAL QID Clobetasol Topical (Clobetasol Propionate) 0.05% Oint 1 Applic TOPICAL BID Meclizine (Meclizine HCl) 25 Mg Tab 25 Mg PO BID PRN Rosuvastatin (Rosuvastatin Calcium) 20 Mg Tab 20 Mg PO DAILY Hydrochlorothiazide 25 Mg Tab 25 Mg PO BID Reported Fluticasone Nasal [place] 50 Mcg/Act Naspr 50 Mcg EACH NARE BID 50 mcg/spray [place] Allergy (Fexofenadine HCl) 60 Mg Tab 60 Mg PO BID Review of Systems Except as stated in HPI: all other systems reviewed are Neg Physical Exam Narrative GENERAL: Well-developed well-nourished elderly female no acute distress or respiratory distress SKIN: Warm and dry. HEAD: Normocephalic. EYES: No scleral icterus. No injection or drainage. NECK: Supple, trachea midline. No JVD or lymphadenopathy. CARDIOVASCULAR: Regular rate and rhythm without murmurs, gallops, or rubs. RESPIRATORY: Breath sounds equal bilaterally. No accessory muscle use. GASTROINTESTINAL: Abdomen soft, non-tender, nondistended. MUSCULOSKELETAL: No cyanosis, or edema. BACK: Nontender without obvious deformity. No CVA tenderness. Data Data Last Documented VS Vital Signs Date Time Temp Pulse Resp B/P (MAP) Pulse Ox O2 Delivery O2 Flow Rate FiO2 08/03/17 05:24 08/03/17 01:17 78 16 99 Room Air 08/02/17 23:55 98.7 Orders Orders Electrocardiogram (08/03/17 00:56) Complete Blood Count With Diff (08/03/17 00:56) Comprehensive Metabolic Panel (08/03/17 00:56) Magnesium (Mg) (08/03/17 00:56) B-Type Natriuretic Peptide (08/03/17 00:56) Ckmb (Isoenzyme) Profile (08/03/17 00:56) Troponin I (08/03/17 00:56) Act Partial Throm Time (Ptt) (08/03/17 00:56) Prothrombin Time / Inr (Pt) (08/03/17 00:56) Urinalysis - C+S If Indicated (08/03/17 00:56) Chest, Single Ap (08/03/17 00:56) Ct Brain W/O Iv Contrast(Rout) (08/03/17 00:56) Ecg Monitoring (08/03/17 00:56) Iv Access Insert/Monitor (08/03/17 00:56) Oximetry (08/03/17 00:56) Ondansetron Inj (Zofran Inj) (08/03/17 01:00) Sodium Chloride 0.9% Flush (Ns Flush) (08/03/17 01:00) CKMB (08/03/17 01:08) CKMB% (08/03/17 01:08) Ed Discharge Order (08/03/17 05:15) Labs Laboratory Tests Test 08/03/17 01:08 08/03/17 04:15 White Blood Count 7.2 TH/MM3 Red Blood Count 4.29 MIL/MM3 Hemoglobin 12.6 GM/DL Hematocrit 38.7 % Mean Corpuscular Volume 90.2 FL Mean Corpuscular Hemoglobin 29.4 PG Mean Corpuscular Hemoglobin Concent 32.6 % Red Cell Distribution Width 13.9 % Platelet Count 194 TH/MM3 Mean Platelet Volume 8.8 FL Neutrophils (%) (Auto) 61.2 % Lymphocytes (%) (Auto) 24.7 % Monocytes (%) (Auto) 9.7 % Eosinophils (%) (Auto) 4.0 % Basophils (%) (Auto) 0.4 % Neutrophils # (Auto) 4.4 TH/MM3 Lymphocytes # (Auto) 1.8 TH/MM3 Monocytes # (Auto) 0.7 TH/MM3 Eosinophils # (Auto) 0.3 TH/MM3 Basophils # (Auto) 0.0 TH/MM3 CBC Comment DIFF FINAL Differential Comment Prothrombin Time 10.3 SEC Prothromb Time International Ratio 1.0 RATIO Activated Partial Thromboplast Time 25.0 SEC Blood Urea Nitrogen 22 MG/DL Creatinine 0.98 MG/DL Random Glucose 101 MG/DL Total Protein 7.1 GM/DL Albumin 3.4 GM/DL Calcium Level 9.2 MG/DL Magnesium Level 1.8 MG/DL Alkaline Phosphatase 92 U/L Aspartate Amino Transf (AST/SGOT) 33 U/L Alanine Aminotransferase (ALT/SGPT) 30 U/L Total Bilirubin 0.2 MG/DL Sodium Level 141 MEQ/L Potassium Level 3.6 MEQ/L Chloride Level 103 MEQ/L Carbon Dioxide Level 31.7 MEQ/L Anion Gap 6 MEQ/L Estimat Glomerular Filtration Rate 67 ML/MIN Total Creatine Kinase 106 U/L Creatine Kinase MB 1.0 NG/ML Troponin I LESS THAN 0.02 NG/ML B-Type Natriuretic Peptide 8 PG/ML Urine Color LIGHT-YELLOW Urine Turbidity CLEAR Urine pH 6.0 Urine Specific [place] 1.011 Urine Protein NEG mg/dL Urine Glucose (UA) NEG mg/dL Urine Ketones NEG mg/dL Urine Occult Blood NEG Urine Nitrite NEG Urine Bilirubin NEG Urine Urobilinogen LESS THAN 2.0 MG/DL Urine Leukocyte Esterase NEG Urine RBC 1 /hpf Urine WBC 1 /hpf Microscopic Urinalysis Comment CULT NOT INDICATED MDM Medical Decision Making Medical Screen Exam Complete: Yes Emergency Medical Condition: Yes Medical Record Reviewed: Yes Interpretation(s) EKG normal sinus rhythm rate [address] elevation or injury pattern or ectopy noted Last Impressions Head CT 08/03/1755 Signed Impressions: Service Date/Time: Thursday, August 03, 2017 01:32 - CONCLUSION: No acute intracranial abnormality. Severe pansinusitis. Alban Mckeon MD Chest X-Ray 08/03/1755 Signed Impressions: Service Date/Time: Thursday, August 03, 2017 01:04 - CONCLUSION: No acute cardiopulmonary disease demonstrated. Alban Mckeon MD CBC & BMP Diagram 08/03/17 01:08 Total Protein 7.1, Albumin 3.4, Calcium Level 9.2, Magnesium Level 1.8, Alkaline Phosphatase 92, Aspartate Amino Transf (AST/SGOT) 33, Alanine Aminotransferase (ALT/SGPT) 30, Total Bilirubin 0.2 Vital Signs Date Time Temp Pulse Resp B/P (MAP) Pulse Ox O2 Delivery O2 Flow Rate FiO2 08/03/17 05:24 08/03/17 01:17 78 16 147/76 (99) 99 Room Air 08/03/17 01:13 16 99 Room Air 08/02/17 23:55 98.7 83 16 149/75 (99) 99 Room Air Differential Diagnosis Generalized weakness, sepsis, UTI, electrolyte disturbance, ACS, TIA, sinus Narrative Course Specimens collected and sent for resulting patient resting comfortably voicing no concerns or complaints Lab values found to be an normal range. Patient encouraged to discontinue medication that she feels precipitated some of her symptoms--nasal spray Patient stable for outpatient management and follow-up with her primary care provider patient provided prescription for azithromycin Tri-Wiliam for sinusitis Diagnosis Primary Impression: Pansinusitis Qualified Codes: J01.40 - Acute pansinusitis, unspecified Additional Impressions: Adverse drug reaction Qualified Codes: T88.7XXA - Unspecified adverse effect of drug or medicament, initial encounter Generalized weakness Referrals: Primary Care Physician call for appointment Patient Instructions: General Instructions Additional Instructions: Complete course of antibiotic as prescribed Increase fluid hydration Follow-up with your primary care provider Return to the emergency department for any concerns or change in condition Discontinue prescription nasal spray Take acetaminophen/Tylenol as needed for fever 100.4F or greater or for minor discomfort Med/Other Pt SpecificInfo: Prescription(s) given, Med Stopped (nasal spray) Scripts Azithromycin (Zithromax Tri-Wiliam) 500 Mg Dspk 500 MG PO DAILY for Infection, #1 DSPK 0 Refills Prov: Naomy Mohr MD 08/03/17 Disposition: DISCHARGE HOME Condition: Stable Naomy Mohr MD Aug 03, 2017 01:19
--- NOTE | 2017-08-03 01:26 | RADRPT ---
EXAM DATE/TIME: 08/03/2017 01:04 [facility] COMPARISON: CHEST SINGLE AP, November 09, 2016, 12:04. INDICATIONS : General weakness. MEDICAL HISTORY : None. SURGICAL HISTORY : None. ENCOUNTER: Initial ACUITY: 1 day PAIN SCORE: 0/10 LOCATION: Bilateral chest FINDINGS: A single view of the chest demonstrates the lungs to be symmetrically aerated without evidence of mas s, infiltrate or effusion. The cardiomediastinal contours are unremarkable. Osseous structures are intact. CONCLUSION: No acute cardiopulmonary disease demonstrated. Alban Mckeon MD on August 03, 2017 at 1:24 Board Certified Radiologist. This report was verified electronically.
[2017-08-03 01:31] LABS: AUTOMATED NEUTROPHIL # 4.4 TH/MM3 (1.8-7.7); BASOPHIL % 0.4 % (0.0-2.0); EOSINOPHIL # 0.3 TH/MM3 (0-0.4); HEMATOCRIT 38.7 % (35.0-46.0); HEMOGLOBIN 12.6 GM/DL (11.6-15.3); LYMPH % 24.7 % (9.0-44.0); LYMPHOCYTE # 1.8 TH/MM3 (1.0-4.8); MEAN CELL VOLUME 90.2 FL (80.0-100.0); MEAN CORPUSCULAR HEMOGLOBIN 29.4 PG (27.0-34.0); MEAN CORPUSCULAR HGB CONC 32.6 % (32.0-36.0); MEAN PLATELET VOLUME 8.8 FL (7.0-11.0); MONO % 9.7 % (0.0-8.0); MONOCYTE # 0.7 TH/MM3 (0-0.9); NEUT % 61.2 % (16.0-70.0); PLATELET COUNT 194 TH/MM3 (150-450); RED BLOOD COUNT 4.29 MIL/MM3 (4.00-5.30); RED CELL DISTRIBUTION WIDTH 13.9 % (11.6-17.2); WHITE BLOOD COUNT 7.2 TH/MM3 (4.0-11.0)
[2017-08-03 01:35] LABS: ALBUMIN 3.4 GM/DL (3.4-5.0); ALT (GPT) 30 U/L (10-53); AST (GOT) 33 U/L (15-37); BICARBONATE 31.7 MEQ/L (21.0-32.0); BLOOD UREA NITROGEN 22 MG/DL (7-18); CALCIUM 9.2 MG/DL (8.5-10.1); CHLORIDE 103 MEQ/L (98-107); CREATININE 0.98 MG/DL (0.50-1.00); GLOMERULAR FILTRATION RATE 67 ML/MIN (>89); GLUCOSE,RANDOM 101 MG/DL (74-106); MAGNESIUM 1.8 MG/DL (1.5-2.5); SODIUM (NA) 141 MEQ/L (136-145)
[2017-08-03 01:39] LABS: ALKALINE PHOSPHATASE 92 U/L (45-117); TOTAL BILIRUBIN ADULT 0.2 MG/DL (0.2-1.0); TOTAL PROTEIN 7.1 GM/DL (6.4-8.2); TROPONIN I LESS THAN 0.02 NG/ML (0.02-0.05)
[2017-08-03 01:46] LABS: PROTHROMBIN TIME - PATIENT 10.3 SEC (9.8-11.6)
--- NOTE | 2017-08-03 02:05 | RADRPT ---
EXAM DATE/TIME: 08/03/2017 01:32 [facility] COMPARISON: MRI BRAIN W & W/O CONTRAST, March 07, 2017, 15:03. INDICATIONS : Dizziness and leg weakness. RADIATION DOSE: 56.35 CTDIvol (mGy) MEDICAL HISTORY : Hypertension. SURGICAL HISTORY : None. ENCOUNTER: Initial ACUITY: 1 day PAIN SCALE: 3/10 LOCATION: cranial TECHNIQUE: Multiple contiguous axial images were obtained of the head. Using automated exposure control and adj ustment of the mA and/or kV according to patient size, radiation dose was kept as low as reasonably a chievable to obtain optimal diagnostic quality images. DICOM format image data is available electro nically for review and comparison. FINDINGS: CEREBRUM: The ventricles are normal for age. No evidence of midline shift, mass lesion, hemorrhage or acute in farction. No extra-axial fluid collections are seen. POSTERIOR FOSSA: The cerebellum and brainstem are intact. The 4th ventricle is midline. The cerebellopontine angle i s unremarkable. EXTRACRANIAL: Heterogeneous diffuse mucoperiosteal thickening seen of the visualized paranasal sinuses. SKULL: The calvaria is intact. No evidence of skull fracture. CONCLUSION: No acute intracranial abnormality. Severe pansinusitis. Alban Mckeon MD on August 03, 2017 at 2:03 Board Certified Radiologist. This report was verified electronically.
[2017-08-03] MEDS ORDERED: ZITHTAB2 PO (02:53)
[2017-08-03 04:55] LABS: BILIRUBIN, URINE NEG (NEG); BLOOD, URINE NEG (NEG); GLUCOSE,URINE NEG (NEG); KETONE, URINE NEG (NEG); NITRITE,URINE NEG (NEG); URINE COLOR LIGHT-YELLOW (YELLW/STRAW); URINE LEUKOCYTE ESTERASE NEG (NEG)
--- NOTE | 2017-08-03 12:51 | EKG ---
Date Performed: 08/03/2017 Time Performed: 01:14:23 PTAGE: 72 years EKG: Sinus rhythm NORMAL ECG PREVIOUS TRACING : 03/07/2017 12.27 No significant change from previous tracing noted. DOCTOR: Christopher Max Interpretating Date/Time 08/03/2017 12:49:35
== END 2017-08-03 06:17 | disposition home or self-care (01) ==
LOC: NEPC 23:54
DX: J32.4 Chronic pansinusitis (principal); R53.1 Weakness; R42 Dizziness and giddiness; T49.6X5A Adverse effect of otorhinolaryngological drugs and preparations, initial encounter; D64.9 Anemia, unspecified; K21.9 Gastro-esophageal reflux disease without esophagitis; M19.90 Unspecified osteoarthritis, unspecified site; E78.00 Pure hypercholesterolemia, unspecified; E78.1 Pure hyperglyceridemia; Z79.899 Other long term (current) drug therapy
CPT/HCPCS: 70450; 71045; 80053; 81001; 82550; 82552; 83735; 83880; 84484; 85025; 85610; 85730; 93005; 96374; 99285; J2405

== ENCOUNTER → 2017-08-21 | Outpatient (CLI) | payer MEDICARE, MEDICAID ==
[~2017-08-21] MED LIST changes: +ALLE60TA PO; +FLUT50SP EACH NARE; -MELO15TA20 PO; -MOBI15TA PO; +ZITHTAB2 PO
[2017-08-21 08:59] LABS: CHOLESTEROL/ HDL RATIO 2.59 RATIO
[2017-08-21 09:06] LABS: HEMATOCRIT 38.7 % (35.0-46.0); HEMOGLOBIN 12.7 GM/DL (11.6-15.3); MEAN PLATELET VOLUME 8.8 FL (7.0-11.0); PLATELET COUNT 187 TH/MM3 (150-450); RED BLOOD COUNT 4.25 MIL/MM3 (4.00-5.30); RED CELL DISTRIBUTION WIDTH 13.6 % (11.6-17.2); WHITE BLOOD COUNT 6.1 TH/MM3 (4.0-11.0)
== END ==
LOC: CLAB 08:00
PROVIDERS: ATTEND Family Medicine
DX: E78.5 Hyperlipidemia, unspecified (principal); E11.9 Type 2 diabetes mellitus without complications
CPT/HCPCS: 36415; 80061; 82043; 85027

== ENCOUNTER 2017-09-10 21:47 | Emergency (ER) | payer MEDICARE, MEDICAID ==
[~2017-09-10] VITALS: Ht 160 cm; Wt 75.0 kg
[2017-09-10 22:50] VITALS: BP 138/74; PULSE 88; RESP 18; TEMP 98.5; O2SAT 99
[2017-09-10] MEDS ORDERED: ZANT150T2 PO (23:04)
[2017-09-11 00:37] VITALS: BP 178/83; PULSE 61; RESP 18; O2SAT 98
--- NOTE | 2017-09-11 00:59 | PD ---
HPI Chief Complaint: Dizziness Time Seen by Provider: 00:18 Travel History International Travel<30 days: No Contact w/Intl Traveler<30days: No Traveled to known affect area: No History of Present Illness HPI Patient is a 72-year-old female presents emergency department for evaluation of dizziness, right arm pain, left leg pain. Patient states that all of these symptoms are chronic for her. She states is been going on worse since Saturday on and off. Patient states she has been followed by her primary care physician for this and has been taking meclizine without any significant relief. She states the pain in her right arm and her left leg she was told this probably due to osteoarthritis and she has tried some ibuprofen for this without relief. She denies any chest pain shortness of breath abdominal pain nausea vomiting focalized weakness vision difficulties or tremors. PFSH Past Medical History Anemia: Yes Arthritis: Yes Asthma: No Autoimmune Disease: No Anxiety: No Depression: No Heart Rhythm Problems: No Cancer: No Cardiovascular Problems: No High Cholesterol: Yes Chemotherapy: No Chest Pain: No Congestive Heart Failure: No COPD: No Cerebrovascular Accident: No Diabetes: No Diminished Hearing: No Endocrine: No Gastrointestinal Disorders: Yes (gerd) GERD: Yes Glaucoma: No Genitourinary: No Headaches: No Hepatitis: No Hiatal Hernia: No Heparin Induced Thrombocytopen: No Hypertension: No Immune Disorder: No Implanted Vascular Access Dvce: No Kidney Stones: No Medical other: Yes (NECK PROBLEMS) Musculoskeletal: Yes (arthritis in r knee) Neurologic: Yes (tingling in L foot) Psychiatric: No Reproductive: No Respiratory: No Immunizations Current: Yes Migraines: No Radiation Therapy: No Renal Failure: No Seizures: No Sickle Cell Disease: No Sleep Apnea: No Thyroid Disease: No Triglycerides - High: Yes Ulcer: No Influenza Vaccination: No ?: Not Menopausal: Yes : 0 Past Surgical History Abdominal Surgery: Yes (HERNIA ) AICD: No Arteriovenous Shunt: No Cardiac Surgery: No Ear Surgery: No Endocrine Surgery: No Eye Surgery: Yes (BILATERAL CATARACT 1987) Genitourinary Surgery: No Gynecologic Surgery: Yes ( CERVICAL MASS REMOVED APR 2015, hysterectomy) Hysterectomy: Yes Insulin Pump: No Joint Replacement: No Neurologic Surgery: No Oral Surgery: No Pacemaker: No Thoracic Surgery: No Other Surgery: Yes (RIGHT BREAST BIOPSY) Social History Alcohol Use: No Tobacco Use: No (never) Substance Use: No Allergies-Medications (Allergen,Severity, Reaction): Coded Allergies: No Known Allergies (Verified Allergy, Unknown, 09/10/17) Reported Meds & Prescriptions Reported Meds & Active Scripts Active Ibuprofen 600 Mg Tab 600 Mg PO Q8HR PRN Potassium Chloride ER (Potassium Chloride) 10 Meq Cap 10 Meq PO BID Gabapentin 300 Mg Cap 300 Mg PO HS Ferrous Sulfate 325 Mg (65 Mg Iron) Tablet 325 Mg PO DAILY Meclizine (Meclizine HCl) 25 Mg Tab 25 Mg PO BID PRN Rosuvastatin (Rosuvastatin Calcium) 20 Mg Tab 20 Mg PO DAILY Hydrochlorothiazide 25 Mg Tab 25 Mg PO BID Reported Zantac (Ranitidine HCl) 150 Mg Tab 150 Mg PO BID Review of Systems Except as stated in HPI: all other systems reviewed are Neg Physical Exam Narrative GENERAL: Well-developed well-nourished, no obvious distress peer SKIN: Focused skin assessment warm/dry. HEAD: Atraumatic. Normocephalic. EYES: Pupils equal and round. No scleral icterus. No injection or drainage. ENT: No nasal bleeding or discharge. Mucous membranes pink and moist. NECK: Trachea midline. No JVD. CARDIOVASCULAR: Regular rate and rhythm. No murmur appreciated. RESPIRATORY: No accessory muscle use. Clear to auscultation. Breath sounds equal bilaterally. GASTROINTESTINAL: Abdomen soft, non-tender, nondistended. Hepatic and splenic margins not palpable. MUSCULOSKELETAL: No obvious deformities. No clubbing. No cyanosis. No edema. No extremity tenderness, no gross deformities, no tenderness at the ankles knees hips femur tib-fib and foot bilaterally, no tenderness at the shoulders humerus elbows forearms or hands bilaterally, no midline CT or L-spine tenderness or step-off. Pulses motor and sensory intact distally in all 4 extremities. NEUROLOGICAL: Awake and alert. Cranial nerves II through XII grossly intact and nonfocal, 5 out of 5 strength in all 4 extremities, cerebellar testing with [id number] and heel shoemaker testing negative, ambulates with an even narrow -base gait. PSYCHIATRIC: Appropriate mood and affect; insight and judgment normal. Data Data Last Documented VS Vital Signs Date Time Temp Pulse Resp B/P (MAP) Pulse Ox O2 Delivery O2 Flow Rate FiO2 09/11/17 02:16 09/11/17 01:01 98 Room Air 09/11/17 00:37 61 18 09/10/17 22:50 98.5 Orders Orders Electrocardiogram (09/11/17 00:52) Basic Metabolic Panel (Bmp) (09/11/17 00:52) Complete Blood Count With Diff (09/11/17 00:52) Ecg Monitoring (09/11/17 00:52) Iv Access Insert/Monitor (09/11/17 00:52) Oximetry (09/11/17 00:52) Oxygen Administration (09/11/17 00:52) Sodium Chloride 0.9% Flush (Ns Flush) (09/11/17 01:00) Diazepam (Valium) (09/11/17 02:00) Ed Discharge Order (09/11/17 01:56) Labs Laboratory Tests Test 09/11/17 00:55 White Blood Count 8.5 TH/MM3 Red Blood Count 4.70 MIL/MM3 Hemoglobin 13.9 GM/DL Hematocrit 42.4 % Mean Corpuscular Volume 90.2 FL Mean Corpuscular Hemoglobin 29.6 PG Mean Corpuscular Hemoglobin Concent 32.8 % Red Cell Distribution Width 13.8 % Platelet Count 201 TH/MM3 Mean Platelet Volume 9.1 FL Neutrophils (%) (Auto) 61.8 % Lymphocytes (%) (Auto) 27.7 % Monocytes (%) (Auto) 8.6 % Eosinophils (%) (Auto) 1.6 % Basophils (%) (Auto) 0.3 % Neutrophils # (Auto) 5.3 TH/MM3 Lymphocytes # (Auto) 2.4 TH/MM3 Monocytes # (Auto) 0.7 TH/MM3 Eosinophils # (Auto) 0.1 TH/MM3 Basophils # (Auto) 0.0 TH/MM3 CBC Comment DIFF FINAL Differential Comment Blood Urea Nitrogen 16 MG/DL Creatinine 0.86 MG/DL Random Glucose 99 MG/DL Calcium Level 10.3 MG/DL Sodium Level 142 MEQ/L Potassium Level 3.6 MEQ/L Chloride Level 105 MEQ/L Carbon Dioxide Level 29.7 MEQ/L Anion Gap 7 MEQ/L Estimat Glomerular Filtration Rate 78 ML/MIN [facility] Medical Decision Making Medical Screen Exam Complete: Yes Emergency Medical Condition: Yes Differential Diagnosis Vertigo, cerebellar stroke unlikely, electrolyte abnormality, chronic osteoarthritis Narrative Course Patient room in the emergency department, she has a reassuring physical exam and her labs are within normal limits, EKG shows no signs of ischemia. After the patient a dose of Valium that may help with her vertigo which she has a history of, she states she would like to have a just prior to discharge so she can take a cab home. Think this is reasonable for her and was so ordered. Otherwise she is stable for discharge discussed need follow-up with her primary care physician and return to ED criteria. Diagnosis Primary Impression: Vertigo Disposition: DISCHARGE HOME Condition: Stable Meliton Cage MD Sep 11, 2017 00:59
[2017-09-11] MEDS ORDERED: SODIUM CHLORIDE 0.9% FLUSH 10 ML FLUSH IVF PRN (01:00)
[2017-09-11 01:01] VITALS: O2SAT 98
[2017-09-11 01:10] LABS: AUTOMATED NEUTROPHIL # 5.3 TH/MM3 (1.8-7.7); BASOPHIL % 0.3 % (0.0-2.0); EOSINOPHIL # 0.1 TH/MM3 (0-0.4); EOSINOPHIL % 1.6 % (0.0-4.0); HEMATOCRIT 42.4 % (35.0-46.0); HEMOGLOBIN 13.9 GM/DL (11.6-15.3); LYMPH % 27.7 % (9.0-44.0); LYMPHOCYTE # 2.4 TH/MM3 (1.0-4.8); MEAN CELL VOLUME 90.2 FL (80.0-100.0); MEAN CORPUSCULAR HEMOGLOBIN 29.6 PG (27.0-34.0); MEAN CORPUSCULAR HGB CONC 32.8 % (32.0-36.0); MEAN PLATELET VOLUME 9.1 FL (7.0-11.0); MONO % 8.6 % (0.0-8.0); MONOCYTE # 0.7 TH/MM3 (0-0.9); NEUT % 61.8 % (16.0-70.0); PLATELET COUNT 201 TH/MM3 (150-450); RED CELL DISTRIBUTION WIDTH 13.8 % (11.6-17.2); WHITE BLOOD COUNT 8.5 TH/MM3 (4.0-11.0)
[2017-09-11 01:46] LABS: BICARBONATE 29.7 MEQ/L (21.0-32.0); CALCIUM 10.3 MG/DL (8.5-10.1); CREATININE 0.86 MG/DL (0.50-1.00)
[2017-09-11] MEDS ORDERED: DIAZEPAM 5 MG TAB PO ONE (02:00)
--- NOTE | 2017-09-11 07:40 | EKG ---
Date Performed: 09/11/2017 Time Performed: 01:09:24 PTAGE: 72 years EKG: Sinus rhythm LOW QRS VOLTAGE IN PRECORDIAL LEADS BORDERLINE ECG INTERPRETATION BASED ON A DEFAULT AGE OF 40 YEARS PREVIOUS TRACING : 08/03/2017 01.14 DOCTOR: Matias Rachel Interpretating Date/Time 09/11/2017 07:39:45
== END 2017-09-11 02:25 | disposition home or self-care (01) ==
LOC: NEPE 21:47
DX: R42 Dizziness and giddiness (principal); M79.605 Pain in left leg; M79.601 Pain in right arm; R94.31 Abnormal electrocardiogram [ECG] [EKG]; M19.90 Unspecified osteoarthritis, unspecified site; E78.00 Pure hypercholesterolemia, unspecified; K21.9 Gastro-esophageal reflux disease without esophagitis; D64.9 Anemia, unspecified
CPT/HCPCS: 80048; 85025; 93005; 99284